=== PATIENT | female | born 1960 | race Caucasian/White ===

== ENCOUNTER → 2016-04-25 | Outpatient (CLI) | payer BC ==
--- NOTE | 2016-04-25 15:20 | CR ---
EXAMINATION: Right knee HISTORY: Pain COMPARISON: None TECHNIQUE: 4 views FINDINGS: There is no acute osseous abnormality, dislocation, or fracture identified. Bone mineraliz ation appears normal. There is a trace joint space narrowing within the medial compartment. No joint effusion or soft tissue swelling. IMPRESSION: Mild degenerative changes and joint space narrowing within the medial compartment.
== END ==
LOC: MW.CHORTHO 07:51
PROVIDERS: ATTEND Orthopaedic Surgery
DX: M25.561 Pain in right knee (principal)
CPT/HCPCS: 73564-26-RT; 73564-RT

== ENCOUNTER 2016-05-23 08:41 | Day surgery (SDC) | payer BC ==
[~2016-05-23 08:41] MED LIST: Lactated Ringers 1,000 ML IV SCH; Lidocaine 1% 50 ML MDV ONE; ceFAZolin 1 GM in Premix Bag 1 BAG IV SCH
[2016-05-23] MEDS ORDERED: Acetaminophen/HYDROcodone 325-5 MG Tab PO PRN (09:00)
[2016-05-23] MEDS ORDERED: Lidocaine 2% 5 ML SDV ONE (09:12)
[2016-05-23] MEDS ORDERED: fentaNYL 100 MCG/2 ML SDV ONE (09:13)
[2016-05-23] MEDS ORDERED: Midazolam 1 MG/ML 2 ML SDV ONE (09:13)
[2016-05-23] MEDS ORDERED: Propofol 200 MG/20 ML SDV ONE (09:13)
--- NOTE | 2016-05-23 09:32 | PCM.PREANE ---
Preanesthetic Assessment - Anesthesia/Transfusion/Family Hx Anesthesia History: Prior Anesthesia Without Reaction Transfusion History: No Prior Transfusion(s) Intubation History: Unknown - Review of Systems General: No Symptoms Pulmonary: No Symptoms Cardiovascular: No Symptoms Gastrointestinal: No symptoms Neurological: Gait Disturbance (due to "particles" in knee) Other: Reports: None - Physical Assessment NPO Status Date: 05/22/16 NPO Status Time: 23:00 O2 Sat by Pulse Oximetry: 100 Respiratory Rate: 16 Vital Signs: Last Vital Signs Temp 97.7 F 05/23/16 09:06 Pulse 58 L 05/23/16 09:06 Resp 16 05/23/16 09:06 BP 122/77 05/23/16 09:06 Pulse Ox 100 05/23/16 09:06 Height: 5 ft 3 in Weight: 103 lb ASA Class: 2 Mental Status: Alert & Oriented x3 Airway Class: Mallampati = 1 Dentition: Reports: Normal Dentition, [place](s) Thyro-Mental Finger Breadths: 3 Mouth Opening Finger Breadths: 3 ROM/Head Extension: Full Lungs: Clear to auscultation Cardiovascular: Regular Rate, Regular Rhythm, No Murmurs - Allergies Allergies/Adverse Reactions: Allergies Allergy/AdvReac Type Severity Reaction Status Date / Time latex Allergy Rash Verified 05/18/16 11:35 - Blood Blood Available: No Product(s) Available: None - Anesthesia Plan Pre-Op Medication Ordered: None - Acknowledgements Anesthesia Type Planned: General Anesthesia (LMA) Pt an Appropriate Candidate for the Planned Anesthesia: Yes Alternatives and Risks of Anesthesia Discussed w Pt/Guardian: Yes Pt/Guardian Understands and Agrees with Anesthesia Plan: Yes PreAnesthesia Questionnaire HEENT History: Reports: Allergic rhinitis Other HEENT History: uses reading glasses, has " laminates" on teeth Cardiovascular History: Reports: None Respiratory History: Reports: None Gastrointestinal History: Reports: Irritable bowel syndrome Genitourinary History: Reports: UTI, recurrent [employer] History: Reports: None Musculoskeletal History: Reports: None Neurological History: Reports: Other (see below) Other Neuro History: hx of motion sickness Psychiatric History: Reports: None Endocrine/Metabolic History: Reports: Hyperthyroidism Hematologic History: Reports: None Immunologic History: Reports: None Oncologic (Cancer) History: Reports: None Dermatologic History: Reports: Other (see below) Other Dermatologic History: hx of dermatitis - Past Surgical History Head Surgeries/Procedures: Reports: None HEENT Surgical History: Reports: Naso-sinus surgery Other HEENT Surgeries/Procedures: balloon procedure Cardiovascular Surgical History: Reports: None Respiratory Surgical History: Reports: None GI Surgical History: Reports: None Female Surgical History: Reports: Breast implant Endocrine Surgical History: Reports: None Neurological Surgical History: Reports: None Musculoskeletal Surgical History: Reports: Arthroscopic knee Other Musculoskeletal Surgeries/Procedures:: hx of right knee arthroscopy Oncologic Surgical History: Reports: None Dermatological Surgical History: Reports: None - SUBSTANCE USE Smoking Status *Q: Never Smoker Recreational Drug Use History: No - HOME MEDS Home Medications: Home Meds Fexofenadine HCl [Edith Allergy] 60 mg PO DAILY 05/18/16 [History] Methimazole 5 mg PO DAILY 05/18/16 [History] - CURRENT (IN HOUSE) MEDS Current Meds: Current Medications Hydrocodone Bitart/Acetaminophen ([place] 325-5 Mg) 1 - 2 tab PO Q4H PRN PRN Reason: Pain Lactated Ringer's (Ringers, Lactated) 1,000 mls @ 100 mls/hr IV ASDIRECTED [facility] Last Admin: 05/23/16 09:08 Dose: 100 mls/hr Cefazolin Sodium/Dextrose 1 gm (/ Premix) 50 mls @ 100 mls/hr IV ONCALL [facility] Discontinued Medications Fentanyl (Sublimaze) Confirm Administered Dose 100 mcg .ROUTE .STK-MED ONE Stop: 05/23/16 09:14 Cefazolin Sodium/Dextrose (Ancef) Confirm Administered Dose 50 mls @ as directed .ROUTE .STK-MED ONE Stop: 05/23/16 09:20 Lidocaine (Xylocaine-Mpf 2%) Confirm Administered Dose 5 ml .ROUTE .STK-MED ONE Stop: 05/23/16 09:13 Lidocaine HCl (Xylocaine 1%) Confirm Administered Dose 50 ml .ROUTE .STK-MED ONE Stop: 05/23/16 07:33 Midazolam HCl (Versed 1 Mg/Ml) Confirm Administered Dose 2 mg .ROUTE .STK-MED ONE Stop: 05/23/16 09:14 Propofol (Diprivan 20 Ml) Confirm Administered Dose 200 mg .ROUTE .STK-MED ONE Stop: 05/23/16 09:14 Preanesthetic Assessment - ANESTHESIA/TRANSFUSION/FAMILY HX Family History of Anesthesia Reaction: No - PHYSICAL ASSESSMENT O2 Sat by Pulse Oximetry: 100 RR: 16 Vital Signs: Last Vital Signs Temp 97.7 F 05/23/16 09:06 Pulse 58 L 05/23/16 09:06 Resp 16 05/23/16 09:06 BP 122/77 05/23/16 09:06 Pulse Ox 100 05/23/16 09:06 Height: 5 ft 3 in Weight: 103 lb NPO Status Date: 05/22/16 NPO Status Time: 23:00 - ALLERGIES Allergies/Adverse Reactions: Allergies Allergy/AdvReac Type Severity Reaction Status Date / Time latex Allergy Rash Verified 05/18/16 11:35
--- NOTE | 2016-05-23 10:11 | PCM.OPNOTE ---
- General Post-Op/Procedure Note Date of Surgery/Procedure: 05/23/16 Operative Procedure(s): R knee arthroscopy with partial medial/lateral menisectomy with excision of loose body (3mm x 3mm) Post-Op Diagnosis: R knee loose bodies. R knee DJD. R knee med/lat meniscus tear Anesthesia Technique: General LMA Primary Surgeon: Altagracia Conway Supervisor Dry Paste: Kristina Montesinos EBL in mLs: 5 Condition: Good Free Text/Narrative:: tt= min
[2016-05-23] MEDS ORDERED: Ondansetron 4 MG/2 ML SDV ONE (10:30)
[2016-05-23] MEDS ORDERED: Ketorolac 30 MG/ML SDV ONE (10:30)
[2016-05-23] MEDS ORDERED: fentaNYL 100 MCG/2 ML SDV IVPUSH PRN (10:45)
--- NOTE | 2016-05-23 11:49 | PCM.POSTAN ---
POST ANESTHESIA ASSESSMENT - MENTAL STATUS Mental Status: alert, oriented - RESPIRATORY Respiratory Status: respiratory rate WNL, airway patent, O2 saturation stable - CARDIOVASCULAR CV Status: pulse rate WNL, blood pressure stable - GASTROINTESTINAL GI Status: no symptoms - PAIN Pain Score: 3 - POST OP HYDRATION Hydration Status: adequate & stable
[2016-05-23 13:55] VITALS: BP 116/70
--- NOTE | 2016-05-23 14:31 | PCM48HPAN ---
Post Anesthesia Note - EVALUATION WITHIN 48HRS OF ANESTHETIC Vital Signs in Normal Range: Yes Patient Participated in Evaluation: Yes Respiratory Function Stable: Yes Airway Patent: Yes Cardiovascular Function Stable: Yes Hydration Status Stable: Yes Pain Control Satisfactory: Yes Nausea and Vomiting Control Satisfactory: Yes Mental Status Recovered: Yes
--- NOTE | 2016-05-23 21:58 | OR ---
SURGEON: Altagracia Conway MD DATE OF PROCEDURE: 05/23/2016 PREOPERATIVE DIAGNOSIS: Right knee loose bodies. POSTOPERATIVE DIAGNOSES: 1. Right knee loose body. 2. Degenerative joint disease, right knee. 3. Right knee medial and lateral meniscus tear. PROCEDURES: Right knee arthroscopy with partial medial and lateral meniscectomy with excision of loose body (3 mm x 3 mm). [employer] ADVISOR: Kristina Montesinos MD, PGY-2 and Deon Leo PA-C. ANESTHESIA: General. ESTIMATED BLOOD LOSS: 5 mL. TOURNIQUET TIME: COMPLICATIONS: None. DVT PROPHYLAXIS: Not indicated. IMPLANTS USED: None. BRIEF HISTORY: The patient is a 56-year-old female who has previously undergone a right knee arthroscopy with ACL reconstruction by Dr. Bush. She had done well until recently when she has noticed a locking sensation in her knee. She is able to palpate a loose body and is able to reposition the loose body to cause her less pain. She failed to respond to conservative treatment. At that time, I recommended surgical intervention. The risks and goals of procedure were discussed with the patient and documented preoperatively. She agreed to proceed. DESCRIPTION OF PROCEDURE: The patient was properly identified and brought to the operating room. She was transferred from the OR cart and placed on the operating table in supine position. General anesthesia was administered. After adequate anesthesia was obtained, a well-padded tourniquet was applied to the right lower extremity. The right lower extremity was then prepped in standard fashion using ChloraPrep solution. It was then sterilely draped. A time-out was performed to ensure correct site and procedure. Preoperative antibiotics were given. The surgical site had been marked preoperatively. An Esmarch was used to exsanguinate the right lower extremity and the tourniquet was inflated to 250 mmHg. A lateral portal arthrotomy was established. Blunt trocar and cannula were introduced into the suprapatellar space. Camera, inflow, and outflow were assembled. The there was mild synovitis in the suprapatellar pouch. The patellofemoral joint was visualized. The patella appeared to track centrally. It was noted in the suprapatellar pouch, there was a small loose body, which appeared to be free floating. I then extended on the lateral and medial gutter. No loose bodies were identified. I then entered the medial compartment. A medial portal arthrotomy was established. A blunt probe was inserted. She was found to have a large degenerative tear of the medial meniscus which appeared to be bucket-handle in nature. It had flipped anteriorly. Using a combination of biters and shaver, the meniscus was resected back to a stable remnant. The meniscus was again probed and the remainder was found to be stable. The chondral surfaces were also inspected. 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 There was an area of grade 3 degenerative changes on the medial femoral condyle. This was probed and the remainder of the cartilage appeared to be stable. This measured approximately 10 mm x 10 mm involved the weightbearing surface. I then entered the notch. The ACL appeared to be thinned. It was somewhat vertical in position, however, appeared to have a good attachment to the superior lateral aspect of the notch. The ACL was probed and was intact. The PCL was also probed and found to be stable. I then entered the posterior lateral and posterior medial joint spaces. No loose bodies were identified. I then entered the lateral compartment. The probe was inserted. An extensive tearing of the lateral meniscus was also noted. Again, a combination of biters and shaver was used to resect the lateral meniscus back to a stable remnant. The meniscus was again probed and the remainder was found to be stable. The joint surfaces were also inspected. She did have an area of grade 4 chondromalacia along the medial portion of the lateral tibial plateau. Diffuse grade 3 degenerative changes were noted along the remainder of the lateral tibial plateau. The lateral femoral condyle showed diffuse grade 2 chondromalacia. I then entered the patellofemoral joint. A portion of the fat pad was resected for visualization. The trochlear groove along with patella showed diffuse grade 2 degenerative chondromalacia. I then turned my attention to the loose body. It was located in the suprapatellar pouch. A grasper was used to remove the loose body without difficulty. The instruments were then removed from the knee. The loose body was measured on the back table. Which measured approximately 3 mm x 3 mm. The portal sites were closed with 3-0 nylon. Lidocaine 1% was injected along the portal tracts. Xeroform gauze was placed over the wound and a bulky dressing was applied. The tourniquet was then deflated. She was awakened from her anesthetic and transferred back to the operating room cart. She was brought to recovery room in stable condition. All needle and sponge counts were correct. JUAN / MICHAEL /[id number]
== END 2016-05-23 13:25 | disposition home or self-care (01) ==
LOC: MW.SDS 08:41
PROVIDERS: ATTEND Orthopaedic Surgery
PROC: 0SBC4ZZ Excision of Right Knee Joint, Percutaneous Endoscopic Approach (ICD-10-PCS; principal; 2016-05-23)
PROC: 0SBC4ZZ Excision of Right Knee Joint, Percutaneous Endoscopic Approach (ICD-10-PCS; 2016-05-23)
DX: S83.281A Other tear of lateral meniscus, current injury, right knee, initial encounter (principal); S83.241A Other tear of medial meniscus, current injury, right knee, initial encounter; M17.11 Unilateral primary osteoarthritis, right knee; M65.861 Other synovitis and tenosynovitis, right lower leg; M94.261 Chondromalacia, right knee; F41.8 Other specified anxiety disorders; E05.90 Thyrotoxicosis, unspecified without thyrotoxic crisis or storm; Z79.899 Other long term (current) drug therapy; Z98.890 Other specified postprocedural states; Z97.5 Presence of (intrauterine) contraceptive device; Z91.040 Latex allergy status; Z87.440 Personal history of urinary (tract) infections
CPT/HCPCS: 27331; 29880; A9270; J0690; J1885; J2250; J2405; J3010; J7120; 01400; 88304; 88311; J2704

== ENCOUNTER 2024-01-21 10:08 | Day surgery (SDC) | payer OTHER ==
[~2024-01-21 10:08] MED LIST changes: -Lactated Ringers 1,000 ML IV SCH; -Lidocaine 1% 50 ML MDV ONE; +Sodium Chloride 0.9% 10 ML Syringe FLUSH PRN; +Sodium Chloride 0.9% 2.5 ML Syringe FLUSH PRN; +Sodium Chloride 0.9% 20 ML SDV IV PRN; -ceFAZolin 1 GM in Premix Bag 1 BAG IV SCH
[2024-01-21] MEDS: Lactated Ringers 1,000 ML IV SCH (10:38)
[2024-01-21] MEDS ORDERED: propofoL 500 MG/50 ML 50 ML ONE (12:39)
[2024-01-21 14:01] VITALS: BP 112/62; PULSE 49
== END 2024-01-21 14:05 | disposition home or self-care (01) ==
LOC: MW.SDS 10:08
PROVIDERS: ATTEND Surgery
DX: K59.09 Other constipation (principal); K58.9 Irritable bowel syndrome, unspecified; F41.8 Other specified anxiety disorders; Z79.899 Other long term (current) drug therapy
CPT/HCPCS: 45380; J2704; J7120